=== PATIENT | female | born 1985 | race African-American/Black ===

== ENCOUNTER 2018-06-28 21:24 | Inpatient (IN) | payer OTHER ==
[~2018-06-28] VITALS: Ht 165.1 cm; Wt 125.3 kg
[~2018-06-28 21:24] MED LIST: IRON325 PO; LEVSIN0.125 MG PO; PROCARDIA XL60 MG PO; ULTRAM 50MG TAB50 MG PO; VITAFOL-OB+DHA1 EACH PO; ZOFRAN ODT4 MG PO
[2018-06-28 21:28] VITALS: BP 150/112
[2018-06-28 22:01] LABS: ABSOLUTE NEUTROPHILS 3.6 thou/uL (1.4-8.2); BASOPHILS 0.7 % (0.0-2.0); EOSINOPHILS 0.8 % (0.0-3.0); HEMATOCRIT 33.2 % (37.0-47.0); HEMOGLOBIN 10.6 gm/dL (12.0-15.0); LYMPHOCYTES 45.9 % (24.0-44.0); MCH 23.4 pg (26.0-34.0); MCHC 31.8 g/dL (28.0-37.0); MCV 73.6 fL (80.0-100.0); MONOCYTES 8.2 % (1.0-8.0); PLATELET COUNT 354 thou/uL (150-400); POLYS 44.4 % (36.0-66.0); RBC 4.51 mil/uL (4.20-5.00); RDW 20.9 % (10.5-14.5); WBC 8.2 thou/uL (4.0-11.0)
[2018-06-28 22:04] LABS: CREATININE 0.8 mg/dL (0.6-1.0)
[2018-06-28 22:10] LABS: ALBUMIN 3.8 g/dL (3.4-5.0); TOTAL BILIRUBIN 0.6 mg/dL (<0.1-1.0); TOTAL PROTEIN 9.3 g/dL (6.4-8.2)
[2018-06-28 22:20] LABS: URINE BILIRUBIN NEGATIVE (Negative); URINE BLOOD NEGATIVE (Negative); URINE CLARITY CLEAR; URINE COLOR YELLOW; URINE GLUCOSE-RANDOM* NEGATIVE (Negative); URINE KETONES TRACE (Negative); URINE LEUKOCYTES-REFLEX NEGATIVE (Negative); URINE NITRITE-REFLEX NEGATIVE (Negative); URINE PROTEIN (DIPSTICK) NEGATIVE (Negative); URINE SPECIFIC GRAVITY >= 1.030 (1.005-1.035); URINE UROBILINOGEN 0.2 E.U./dl (0.2-1.0)
[2018-06-28 22:21] LABS: ANISOCYTOSIS 1+; HYPOCHROMASIA 1+; MACROCYTES 1+; MICROCYTES SLIGHT; TARGET CELLS OCCASIONAL
[2018-06-29] VITALS (7 sets, daily range): BP systolic 113–126; BP diastolic 51–78
[2018-06-29 11:20] LABS: CHOLESTEROL 110 mg/dL (<200); HDL CHOLESTEROL 72 mg/dL (>40); LDL CHOLESTEROL 35 mg/dL (<100); TC:HDL 1.5 Ratio (Not establshd); TRIGLYCERIDE 17 mg/dL (<150); VLDL 3 mg/dL (<40)
[2018-06-30 04:42] VITALS: BP 114/74
[2018-06-30 08:03] VITALS: BP 114/72
[2018-06-30 12:04] VITALS: BP 141/83
[2018-06-30 15:44] VITALS: BP 142/75
[2018-06-30 20:15] VITALS: BP 146/64
[2018-07-01 03:20] VITALS: BP 118/79
[2018-07-01 06:13] LABS: HEMATOCRIT 27.4 % (37.0-47.0); MCHC 30.8 g/dL (28.0-37.0); MCV 74.8 fL (80.0-100.0); RBC 3.67 mil/uL (4.20-5.00); RDW 20.4 % (10.5-14.5); WBC 7.5 thou/uL (4.0-11.0)
[2018-07-01 06:31] LABS: CALCIUM 8.4 mg/dL (8.5-10.1); CREATININE 0.7 mg/dL (0.6-1.0); MAGNESIUM 1.8 mg/dL (1.8-2.4); POTASSIUM 4.2 mmol/L (3.5-5.1)
[2018-07-01 07:05] LABS: HEMOGLOBIN 8.4 gm/dL (12.0-15.0)
[2018-07-01 07:48] VITALS: BP 106/71
[2018-07-01 15:52] LABS: % SATURATION 6 % (20-39); IRON 19 ug/dL (50-170); TIBC 331 ug/dL (250-450)
[2018-07-01 16:54] VITALS: BP 125/87
[2018-07-01 20:15] VITALS: BP 121/79
[2018-07-02 05:26] LABS: HEMATOCRIT 25.3 % (37.0-47.0); HEMOGLOBIN 7.9 gm/dL (12.0-15.0); MCH 23.6 pg (26.0-34.0); MCHC 31.4 g/dL (28.0-37.0); RBC 3.37 mil/uL (4.20-5.00); WBC 5.6 thou/uL (4.0-11.0)
[2018-07-02 05:38] LABS: CALCIUM 8.1 mg/dL (8.5-10.1); CREATININE 0.6 mg/dL (0.6-1.0); MAGNESIUM 1.8 mg/dL (1.8-2.4)
[2018-07-02 07:36] VITALS: BP 136/92
[2018-07-02 11:10] VITALS: BP 136/92
[2018-07-02 11:16] VITALS: BP 136/92
[2018-07-02 11:35] VITALS: BP 131/78
[2018-07-02 12:07] VITALS: BP 136/92
== END 2018-07-02 13:19 | disposition home or self-care (01) | DRG 389 ==
LOC: ER 21:24 → 3W 06-29 00:14
PROVIDERS: Emergency Medicine; Hospitalist; Internal Medicine; Surgery
DX: K56.609 Unspecified intestinal obstruction, unspecified as to partial versus complete obstruction (principal); Z68.42 Body mass index [BMI] 45.0-49.9, adult; E11.9 Type 2 diabetes mellitus without complications; I10 Essential (primary) hypertension; E66.9 Obesity, unspecified; F41.9 Anxiety disorder, unspecified; F32.9 Major depressive disorder, single episode, unspecified; F12.90 Cannabis use, unspecified, uncomplicated; F10.10 Alcohol abuse, uncomplicated; D64.9 Anemia, unspecified; Z98.84 Bariatric surgery status; Z88.6 Allergy status to analgesic agent; Z79.899 Other long term (current) drug therapy
CPT/HCPCS: 10779

== ENCOUNTER 2019-09-15 15:34 | Emergency (ER) | payer OTHER ==
[~2019-09-15] VITALS: Ht 162.6 cm; Wt 127.0 kg
[2019-09-15 16:02] LABS: URINE BILIRUBIN NEGATIVE (Negative); URINE BLOOD 2+ (Negative); URINE CLARITY CLEAR; URINE COLOR YELLOW; URINE GLUCOSE-RANDOM* NEGATIVE (Negative); URINE KETONES NEGATIVE (Negative); URINE LEUKOCYTES-REFLEX TRACE (Negative); URINE NITRITE-REFLEX NEGATIVE (Negative); URINE PROTEIN (DIPSTICK) NEGATIVE (Negative); URINE SPECIFIC GRAVITY 1.025 (1.005-1.035); URINE UROBILINOGEN 0.2 E.U./dl (0.2-1.0)
[2019-09-15 16:11] LABS: BACTERIA-REFLEX 1-9 Few /HPF (None Seen); CASTS None Seen /LPF (None Seen); CRYSTALS None Seen /LPF (None Seen); SQUAMOUS 0-3 Few /LPF (0-3); URINE RBC 0-2 Rare /HPF (0-2); URINE WBC-REFLEX 0-5 Rare /HPF (0-5)
[2019-09-15 16:44] LABS: HEMATOCRIT 28.3 % (37.0-47.0); HEMOGLOBIN 8.5 gm/dL (12.0-15.0); MCH 22.3 pg (26.0-34.0); MCHC 30.2 g/dL (28.0-37.0); MCV 73.7 fL (80.0-100.0); PLATELET COUNT 379 thou/uL (150-400); RBC 3.83 mil/uL (4.20-5.00); RDW 20.7 % (10.5-14.5); WBC 6.4 thou/uL (4.0-11.0)
[2019-09-15 16:53] LABS: CALCIUM 8.5 mg/dL (8.5-10.1); CREATININE 0.9 mg/dL (0.6-1.0); POTASSIUM 4.8 mmol/L (3.5-5.1)
[2019-09-15 16:59] LABS: ALBUMIN 3.3 g/dL (3.4-5.0); TOTAL BILIRUBIN 0.2 mg/dL (<0.1-1.0); TOTAL PROTEIN 8.1 g/dL (6.4-8.2)
[2019-09-15 17:03] LABS: ANISOCYTOSIS 1+; HYPOCHROMASIA SLIGHT; MICROCYTES 1+; POLYCHROMASIA OCCASIONAL
[2019-09-15] MEDS ORDERED: TRAMADOL 50 MG50 MG PO (18:11)
[2019-09-15] MEDS ORDERED: LEVSIN0.125 MG PO (18:11)
[2019-09-15] MEDS ORDERED: PRILOSEC OTC20 MG PO (18:11)
[2019-09-15 18:59] VITALS: BP 157/82
== END 2019-09-15 19:11 | disposition home or self-care (01) ==
LOC: ER 15:34
PROVIDERS: Physician Assistant
DX: I10 Essential (primary) hypertension (principal); R10.32 Left lower quadrant pain; R19.7 Diarrhea, unspecified; E11.9 Type 2 diabetes mellitus without complications; F41.9 Anxiety disorder, unspecified; F32.9 Major depressive disorder, single episode, unspecified; Z98.84 Bariatric surgery status; Z88.5 Allergy status to narcotic agent